=== PATIENT | male | born 1970 | race American Indian/Alaskan Native ===

== ENCOUNTER 2021-06-20 17:15 | Emergency (ER) | payer OTHER ==
[2021-06-20 19:06] LABS: Alanine Aminotransferase 12 units/L (7-56); Albumin 4.7 g/dL (3.9-5); BUN/Creatinine Ratio 14; Blood Urea Nitrogen 14 mg/dL (9-20); Calcium 10.3 mg/dL (8.4-10.2); Hemolysis Index 7
[2021-06-20 19:17] LABS: Hematocrit 42.2 % (35.5-45.6); Mean Corpuscular HGB Conc 33 % (32-34); Mean Corpuscular Volume 96 fl (84-94); Platelet Count 173 K/mm3 (140-440); Red Blood Count 4.41 M/mm3 (3.65-5.03)
[2021-06-20 19:33] LABS: Bilirubin,Urine NEG (Negative); Blood,Urine NEG (Negative); Color,Urine Yellow (Yellow); Mucus,Urine 1+ /HPF
[2021-06-20 20:16] LABS: Band Neutrophils # (Manual) 0.1 K/mm3; Basophils % (Manual) 0 % (0.0-1.8); Total Cells Counted 100
[2021-06-20 20:17] LABS: Platelet Estimate Consistent w Auto; RBC Morphology Normal
--- NOTE | 2021-06-20 20:17 | Event Note ---
ED Screening Note Date of service: 06/20/21 Time: 20:11 ED Screening Note: Patient complains of acute on chronic abdominal pain today States he has had abdominal pain over a year and recently saw GI who ordered a colonoscopy Patient has not had a colonoscopy as of yet Patient states his abdominal pain was a 10 out of 10 but has somewhat improved since This initial assessment/diagnostic orders/clinical plan/treatment(s) is/are subject to change based on patients health status, clinical progression and re- assessment by fellow clinical providers in the ED. Further treatment and workup at subsequent clinical providers discretion. Patient/guardian urged not to elope from the ED as their condition may be serious if not clinically assessed and managed. Initial orders include: Labs CT abdomen
--- NOTE | 2021-06-20 22:21 | Cat Scan Report ---
CT ABDOMEN AND PELVIS WITH IV CONTRAST INDICATION: mid abdominal pain. COMPARISON: None available. TECHNIQUE: Axial CT images were obtained through the abdomen and pelvis after 100 mL Omnipaque [address] scans at this location are performed using CT dose reduction for ALARA by means of automated e xposure control. FINDINGS -- ABDOMEN: Lung Bases: No acute abnormality. Liver: Normal. Gallbladder: Normal. Bile Ducts: Normal. Pancreas: Normal. Spleen: Normal. Adrenals: Normal. Right Kidney and Proximal Ureter: Normal. Left Kidney and Proximal Ureter: Normal. Stomach and Bowel: Normal. Lymph Nodes: No significant adenopathy. Aorta: No significant abnormality. IVC: Normal. Additional Findings: None. FINDINGS -- PELVIS: Urinary Bladder and Distal Ureters: Normal. Reproductive Organs: No acute abnormality. Appendix: Normal. Bowel: No acute abnormality. Free Fluid: None. Lymph Nodes: No significant adenopathy. Additional Findings: None. Skeletal System: No acute abnormality. IMPRESSION: 1. No acute process in the abdomen or pelvis. Signer Name: William Álvarez MD Signed: 06/20/2021 10:17 PM Workstation Name: [id number]
--- NOTE | 2021-06-20 22:50 | Emergency Department Report ---
ED Abdominal Pain HPI - General Chief Complaint: Abdominal Pain Stated Complaint: STOMACH PAIN PUI?: No Time Seen by Provider: 06/20/21 20:10 Source: patient Mode of arrival: Ambulatory Limitations: No Limitations - History of Present Illness Initial Comments: Chief complaint: Abdominal pain HPI: This is a 51-year-old male without significant past medical history presents with recurrent abdominal pain for several years worse over the last several months. He was evaluated by GI specialist who recommended colonoscopy. Patient had a colonoscopy and polypectomy Several years ago. He has smoked daily marijuana for several years. He is also has significant weight loss. Recently moved from [place]. New PCP is Dr. Mcneill. He is now seeing GI specialist located in the regular area. Pain is moderate severe. Crampy. 7 out of 10 in severity. Located at the umbilicus. MD Complaint: abdominal pain -: Gradual, month(s) (Worse over the last months), year(s) (Several years) Location: periumbilical Radiation: none Migration to: no migration Severity: moderate Severity scale (0 -10): 7 Quality: cramping Consistency: intermittent Improves With: nothing Worsens With: eating Associated Symptoms: nausea, diarrhea - Related Data Previous Rx's Medication Instructions Recorded Last Taken Type Dicyclomine [Bentyl] 20 mg PO QID 14 Days #56 tablet 06/20/21 Unknown Rx Omeprazole 20 mg PO DAILY 30 Days #30 06/20/21 Unknown Rx Allergies Allergy/AdvReac Type Severity Reaction Status Date / Time No Known Allergies Allergy Verified 06/20/21 18:02 ED Review of Systems ROS: Stated complaint: STOMACH PAIN Other details as noted in HPI Comment: All other systems reviewed and negative Constitutional: denies: fever, malaise Eyes: denies: as per HPI Respiratory: denies: cough, shortness of breath Cardiovascular: denies: chest pain Gastrointestinal: abdominal pain, nausea, diarrhea ED Past Medical Hx - Past Medical History Previous Medical History?: No - Surgical History Past Surgical History?: Yes Additional Surgical History: Vascular surgery after blunt trauma, sports injury - Family History Family history: hypertension - Social History Smoking Status: Never Smoker Substance Use Type: Marijuana - Medications Home Medications: Home Medications Medication Instructions Recorded Confirmed Last Taken Type Dicyclomine [Bentyl] 20 mg PO QID 14 Days #56 tablet 06/20/21 Unknown Rx Omeprazole 20 mg PO DAILY 30 Days #30 06/20/21 Unknown Rx ED Physical Exam - General Limitations: No Limitations General appearance: alert, in no apparent distress - Head Head exam: Present: atraumatic, normocephalic - Eye Eye exam: Present: normal appearance - ENT ENT exam: Present: mucous membranes moist - Neck Neck exam: Present: normal inspection, full ROM - Respiratory Respiratory exam: Present: normal lung sounds bilaterally. Absent: respiratory distress, wheezes, rales, stridor - Cardiovascular Cardiovascular Exam: Present: regular rate, normal rhythm, normal heart sounds. Absent: systolic murmur, diastolic murmur, rubs, gallop - GI/Abdominal GI/Abdominal exam: Present: soft, normal bowel sounds. Absent: distended, tenderness, guarding, rebound - Rectal Rectal exam: Present: deferred - Extremities Exam Extremities exam: Present: normal inspection - Neurological Exam Neurological exam: Present: alert, oriented X3 - Psychiatric Psychiatric exam: Present: normal affect, normal mood - Skin Skin exam: Present: warm, dry, intact, normal color. Absent: rash ED Course Vital Signs 06/20/21 18:03 Temperature 97.7 F Pulse Rate 68 Respiratory 16 Rate Blood Pressure 111/61 [Left] O2 Sat by Pulse 100 Oximetry ED Medical Decision Making - Lab Data Result diagrams: 06/20/21 18:20 06/20/21 18:20 - Radiology Data Radiology results: report reviewed Patient Name: LEEANNA BLEVINS Gender: Male Date of : 1970 Referring Provider: MARIO CALLE Organization: [facility] Accession Number: [id number] Requested Date: June 20, 2021 21:40 Report Status: Final Requested Procedure: 1 Procedure Description: CT abdomen pelvis w con Modality: CT Findings Reporting MD: William Álvarez Dictation Time: June 20, 2021 21:17 Usability Specialist: Not available Adult And Pediatric Neurologist Date: CT ABDOMEN AND PELVIS WITH IV CONTRAST INDICATION: mid abdominal pain. COMPARISON: None available. TECHNIQUE: Axial CT images were obtained through the abdomen and pelvis after 100 mL Omnipaque [address] scans at this location are performed using CT dose reduction for ALARA by means of automated exposure control. FINDINGS -- ABDOMEN: Lung Bases: No acute abnormality. Liver: Normal. Gallbladder: Normal. Bile Ducts: Normal. Pancreas: Normal. Spleen: Normal. Adrenals: Normal. Right Kidney and Proximal Ureter: Normal. Left Kidney and Proximal Ureter: Normal. Stomach and Bowel: Normal. Lymph Nodes: No significant adenopathy. Aorta: No significant abnormality. IVC: Normal. Additional Findings: None. FINDINGS -- PELVIS: Urinary Bladder and Distal Ureters: Normal. Reproductive Organs: No acute abnormality. Appendix: Normal. Bowel: No acute abnormality. Free Fluid: None. Lymph Nodes: No significant adenopathy. Additional Findings: None. Skeletal System: No acute abnormality. IMPRESSION: 1. No acute process in the abdomen or pelvis. Signer Name: William Álvarez MD - Medical Decision Making Recurrent abdominal pain with history of marijuana dependence: Differential diagnosis includes irritable bowel syndrome, inflammatory bowel disease, cannabinoid hyperemesis syndrome, peptic ulcer disease. Strongly recommended cessation of marijuana use. Prescribed famotidine for possible peptic ulcer disease and Bentyl. Critical care attestation.: If time is entered above; I have spent that time in minutes in the direct care of this critically ill patient, excluding procedure time. ED Disposition Clinical Impression: Irritable bowel syndrome, Peptic ulcer disease Disposition: 01 HOME / SELF CARE / HOMELESS Is pt being admited?: No Does the pt Need Aspirin: No Condition: Stable Instructions: Peptic Ulcer, [id number], Diet for Irritable Bowel Syndrome Prescriptions: Dicyclomine [Bentyl] 20 mg PO QID 14 Days #56 tablet Omeprazole 20 mg PO DAILY 30 Days #30 Referrals: PRIMARY CARE, [Primary Care Provider] - 3-5 Days
[2021-06-20 22:59] VITALS: BP 118/60
== END 2021-06-20 23:01 | disposition home or self-care (01) ==
LOC: ED 17:15
DX: K58.9 Irritable bowel syndrome, unspecified (principal); K27.1 Acute peptic ulcer, site unspecified, with perforation; F12.90 Cannabis use, unspecified, uncomplicated
CPT/HCPCS: 36415; 74177; 80053; 81001; 83690; 85007; 85025; 99284; Q9967